=== PATIENT | female | born 1960 | race Two or more races ===

== ENCOUNTER 2022-06-23 15:51 | Inpatient (IN) | payer MEDICAID, OTHER ==
[~2022-06-23] VITALS: Ht 160 cm; Wt 52.0 kg
[2022-06-23] MEDS ORDERED: NALOXONE HCL 1MG/ML 2ML SYRINGE IV ONE ×2 (16:15→17:30)
[2022-06-23 16:35] LABS: Basophils # (auto) 0 10 ^3/uL (0-0.2); Basophils % (auto) 0.8 % (0.0-2.0); Eosinophils # (auto) 0 10 ^3/uL (0-0.8); Eosinophils % (auto) 0.1 % (0.0-7.0); Hematocrit 36.3 % (36.0-46.0); Hemoglobin 11.8 g/dL (12.2-16.2); Lymphocytes # (auto) 1.3 10 ^3/uL (0.4-5.4); Mean Corpuscular Hemoglobin 29.7 pg (28.0-32.0); Mean Corpuscular Hgb Conc. 32.6 g/dL (32.0-36.0); Mean Corpuscular Volume 90.9 fL (80.0-100.0); Monocytes # (auto) 0.7 10 ^3/uL (0-1.3); Monocytes % (auto) 12.8 % (0.0-12.0); Neutrophils # (auto) 3.4 10 ^3/uL (1.6-8.6); Neutrophils % (auto) 62.3 % (37.0-80.0); Nucleated Red Blood Cells % 0.1 %; Red Blood Cells 3.99 10^6/uL (4.0-5.20); Red Cell Distribution Width 14.5 % (11.8-14.3); White Blood Cell 5.4 10^3/uL (4.4-10.8)
[2022-06-23 17:08] LABS: Albumin 3.3 g/dL (3.4-5.0); Calcium 9.4 mg/dL (8.5-10.1); Potassium 3.9 mmol/L (3.5-5.1)
[2022-06-23 17:11] LABS: Bilirubin, Total 0.5 mg/dL (0.2-1.0); Total Protein 6.5 g/dL (6.4-8.2)
[2022-06-23] MEDS ORDERED: NALOXONE HCL 1MG/ML 2ML SYRINGE ONE (17:20)
[2022-06-23 17:33] LABS: Urine Bacteria FEW /hpf (None Seen); Urine Blood Negative /uL (Negative); Urine Hyaline Cast MOD /lpf (0 - 2); Urine Mucus FEW (None Seen); Urine Specific Gravity 1.017 (1.001-1.035); Urine WBC 14 /hpf (0 - 5)
[2022-06-23 17:40] LABS: Alcohol, Urine < 3.0 mg/dL (0-10); Amphetamine Screen, Urine NEGATIVE (NEGATIVE); Barbiturate Scree,Urine NEGATIVE (NEGATIVE); Benzodiazephine Screen, Urine NEGATIVE (NEGATIVE); Cannabinoid Screen, Urine NEGATIVE (NEGATIVE); Cocaine Screen, Urine NEGATIVE (NEGATIVE); Opiate Scree,Urine NEGATIVE (NEGATIVE); Phencyclidine Screen, Urine NEGATIVE (NEGATIVE)
[2022-06-23] MEDS ORDERED: MORPHINE SULFATE INJ 2 MG/ml SYRG IV PRN (21:45)
[2022-06-23] MEDS ORDERED: DEXTROSE (50%) 50ML SYRG IV PRN (21:45)
[2022-06-23] MEDS ORDERED: cefTRIAXone 1GM/50ML D5W 50 ML IV ONE (21:45)
[2022-06-23] MEDS ORDERED: NITROGLYCERIN 0.4 MG SL TAB SL PRN (21:45)
[2022-06-23] MEDS ORDERED: ONDANSETRON HCL 4 MG/2 ML VIAL IV PRN (21:45)
[2022-06-23] MEDS: InsuLIN REG 1unit/0.01ml Soln (100units/ml) SC SCH (22:00)
[2022-06-23] MEDS: ACCU-CHEK COMFORT CURVE STRIP VI SCH (22:00)
[2022-06-23] MEDS: ATORVASTATIN 20 MG TAB PO SCH (23:23)
[2022-06-23] MEDS: GABAPENTIN 100 MG CAP PO SCH (23:24)
[2022-06-24] MEDS: GABAPENTIN 100 MG CAP PO SCH ×3 (06:00→21:58)
[2022-06-24] MEDS: ACCU-CHEK COMFORT CURVE STRIP VI SCH ×4 (06:45→21:58)
[2022-06-24] MEDS: InsuLIN REG 1unit/0.01ml Soln (100units/ml) SC SCH ×4 (06:51→21:57)
[2022-06-24 07:15] LABS: Basophils # (auto) 0 10 ^3/uL (0-0.2); Basophils % (auto) 0.8 % (0.0-2.0); Eosinophils # (auto) 0 10 ^3/uL (0-0.8); Eosinophils % (auto) 0.7 % (0.0-7.0); Hematocrit 38.6 % (36.0-46.0); Hemoglobin 12.3 g/dL (12.2-16.2); Lymphocytes % (auto) 19.1 % (10.0-50.0); Mean Corpuscular Hemoglobin 29.4 pg (28.0-32.0); Mean Corpuscular Volume 92.1 fL (80.0-100.0); Monocytes # (auto) 0.5 10 ^3/uL (0-1.3); Monocytes % (auto) 9.6 % (0.0-12.0); Neutrophils # (auto) 3.7 10 ^3/uL (1.6-8.6); Neutrophils % (auto) 69.8 % (37.0-80.0); Nucleated Red Blood Cells % 0.1 %; Red Blood Cells 4.19 10^6/uL (4.0-5.20); Red Cell Distribution Width 14.9 % (11.8-14.3); White Blood Cell 5.3 10^3/uL (4.4-10.8)
[2022-06-24] MEDS: LEVOTHYROXINE SODIUM 100 MCG TAB PO SCH (07:18)
[2022-06-24 07:32] LABS: BUN/Creatinine Ratio 24.3; Calcium 9.7 mg/dL (8.5-10.1)
[2022-06-24 08:14] LABS: Potassium 4.7 mmol/L (3.5-5.1)
[2022-06-24] MEDS: PANTOPRAZOLE 40 MG TAB PO SCH (09:32)
[2022-06-24] MEDS: cefTRIAXone 1GM/50ML D5W 50 ML IV SCH (09:32)
[2022-06-24 18:30] VITALS: BP 130/79
[2022-06-24 18:35] VITALS: BP 130/79
[2022-06-24 19:31] LABS: Free T4 (Free Thyroxine) 1.02 ng/dL (0.89-1.76)
[2022-06-24 19:32] LABS: Folate (Folic Acid) 13.81 ng/mL (5.38-24)
[2022-06-24 21:35] VITALS: BP 116/63
[2022-06-24] MEDS: ATORVASTATIN 20 MG TAB PO SCH (21:58)
[2022-06-25 05:18] VITALS: BP 102/67
[2022-06-25] MEDS: InsuLIN REG 1unit/0.01ml Soln (100units/ml) SC SCH ×4 (06:19→21:38)
[2022-06-25] MEDS: LEVOTHYROXINE SODIUM 100 MCG TAB PO SCH (06:26)
[2022-06-25] MEDS: ACCU-CHEK COMFORT CURVE STRIP VI SCH ×4 (06:27→21:46)
[2022-06-25] MEDS: GABAPENTIN 100 MG CAP PO SCH ×2 (06:27→13:27)
[2022-06-25 06:36] LABS: BUN/Creatinine Ratio 21.8; Calcium 9.5 mg/dL (8.5-10.1); Potassium 4.1 mmol/L (3.5-5.1)
[2022-06-25 06:44] LABS: Basophils # (auto) 0 10 ^3/uL (0-0.2); Eosinophils # (auto) 0.1 10 ^3/uL (0-0.8); Eosinophils % (auto) 2.5 % (0.0-7.0); Hematocrit 37.8 % (36.0-46.0); Hemoglobin 12.3 g/dL (12.2-16.2); Lymphocytes # (auto) 1.3 10 ^3/uL (0.4-5.4); Lymphocytes % (auto) 36.6 % (10.0-50.0); Mean Corpuscular Hemoglobin 29.7 pg (28.0-32.0); Mean Corpuscular Hgb Conc. 32.5 g/dL (32.0-36.0); Mean Corpuscular Volume 91.4 fL (80.0-100.0); Monocytes # (auto) 0.5 10 ^3/uL (0-1.3); Monocytes % (auto) 14.9 % (0.0-12.0); Neutrophils # (auto) 1.6 10 ^3/uL (1.6-8.6); Red Blood Cells 4.14 10^6/uL (4.0-5.20); Red Cell Distribution Width 14.6 % (11.8-14.3); White Blood Cell 3.5 10^3/uL (4.4-10.8)
[2022-06-25 07:23] LABS: Urine Bacteria FEW /hpf (None Seen); Urine Blood 2+ /uL (Negative); Urine Mucus FEW (None Seen); Urine Specific Gravity 1.018 (1.001-1.035); Urine WBC 20 /hpf (0 - 5)
[2022-06-25 08:06] LABS: RPR Non Reactive (Non Reactive)
[2022-06-25 09:00] VITALS: BP 124/77
[2022-06-25] MEDS: ENOXAPARIN SOD 40 MG/0.4 ML SYRINGE SC SCH (09:10)
[2022-06-25] MEDS: PANTOPRAZOLE 40 MG TAB PO SCH (09:10)
[2022-06-25] MEDS: cefTRIAXone 1GM/50ML D5W 50 ML IV SCH (09:10)
[2022-06-25 16:58] VITALS: BP 129/83
[2022-06-25] MEDS: LIDOCAINE 5% TOPICAL PATCH TOP SCH (17:50)
[2022-06-25 20:44] VITALS: BP 113/69
[2022-06-25] MEDS: HYDROcodone-ACET 7.5/325MG TAB PO PRN (20:44)
[2022-06-25] MEDS: ATORVASTATIN 20 MG TAB PO SCH (21:46)
[2022-06-25] MEDS: GABAPENTIN 300 MG CAP PO SCH (21:46)
[2022-06-26 04:34] VITALS: BP 123/80
[2022-06-26] MEDS: GABAPENTIN 300 MG CAP PO SCH ×3 (06:22→21:09)
[2022-06-26] MEDS: InsuLIN REG 1unit/0.01ml Soln (100units/ml) SC SCH ×4 (06:27→22:18)
[2022-06-26] MEDS: ACCU-CHEK COMFORT CURVE STRIP VI SCH (06:33)
[2022-06-26] MEDS: LEVOTHYROXINE SODIUM 100 MCG TAB PO SCH (06:33)
[2022-06-26] MEDS: HYDROcodone-ACET 7.5/325MG TAB PO PRN (06:34)
[2022-06-26] MEDS: INSULIN LANTUS (GLARGINE) 1 /0.01ml (100units/ml) SC SCH (07:49)
[2022-06-26] MEDS: cefTRIAXone 1GM/50ML D5W 50 ML IV SCH (09:38)
[2022-06-26] MEDS: ENOXAPARIN SOD 40 MG/0.4 ML SYRINGE SC SCH (09:39)
[2022-06-26] MEDS: PANTOPRAZOLE 40 MG TAB PO SCH (09:39)
[2022-06-26 09:52] VITALS: BP 117/75
[2022-06-26 13:00] VITALS: BP 129/75
[2022-06-26 16:44] VITALS: BP 117/77
[2022-06-26] MEDS: LIDOCAINE 5% TOPICAL PATCH TOP SCH (18:04)
[2022-06-26] MEDS: ATORVASTATIN 20 MG TAB PO SCH (21:10)
[2022-06-26 22:00] VITALS: BP 134/76
[2022-06-27 05:00] VITALS: BP 103/73
[2022-06-27] MEDS: GABAPENTIN 300 MG CAP PO SCH ×3 (05:23→21:10)
[2022-06-27] MEDS: LEVOTHYROXINE SODIUM 100 MCG TAB PO SCH (06:57)
[2022-06-27] MEDS: InsuLIN REG 1unit/0.01ml Soln (100units/ml) SC SCH ×4 (06:58→21:15)
[2022-06-27] MEDS: INSULIN LANTUS (GLARGINE) 1 /0.01ml (100units/ml) SC SCH (06:59)
[2022-06-27 09:00] VITALS: BP 115/76
[2022-06-27] MEDS: cefTRIAXone 1GM/50ML D5W 50 ML IV SCH (09:31)
[2022-06-27] MEDS: HYDROcodone-ACET 10/325MG TAB PO PRN ×2 (09:32→19:26)
[2022-06-27] MEDS: PANTOPRAZOLE 40 MG TAB PO SCH (09:32)
[2022-06-27] MEDS: ENOXAPARIN SOD 40 MG/0.4 ML SYRINGE SC SCH (09:32)
[2022-06-27 13:00] VITALS: BP 110/68
[2022-06-27 17:00] VITALS: BP 115/74
[2022-06-27] MEDS: LIDOCAINE 5% TOPICAL PATCH TOP SCH (18:08)
[2022-06-27] MEDS: ATORVASTATIN 20 MG TAB PO SCH (21:10)
[2022-06-27 21:28] VITALS: BP 114/74
[2022-06-27] MEDS ORDERED: INSULIN LANTUS (GLARGINE) 1 /0.01ml (100units/ml) SC SCH (22:00)
== END 2022-06-27 22:20 | DRG 420 ==
LOC: EDBD 15:51 → ER 15:51 → TELE 21:41 → TELE-WESTW 06-24 18:04 → WEST WING 06-26 15:05
PROVIDERS: ADMIT Nurse Practitioner; ATTEND Hospitalist
DX: E11.00 Type 2 diabetes mellitus with hyperosmolarity without nonketotic hyperglycemic-hyperosmolar coma (NKHHC) (principal); G92.8 Other toxic encephalopathy; N17.9 Acute kidney failure, unspecified; T40.2X1A Poisoning by other opioids, accidental (unintentional), initial encounter; N39.0 Urinary tract infection, site not specified; Z20.822 Contact with and (suspected) exposure to COVID-19; I10 Essential (primary) hypertension; Y92.89 Other specified places as the place of occurrence of the external cause
CPT/HCPCS: 36415; 70450; 71045; 80048; 80053; 80307; 80320; 81001; 82607; 82746; 82962; 84439; 84443; 84484; 85025; 86592; 87040; 87086; 87426; 93005; 96365; 96366; 96375; 96376; 97116; 97163; 97530; G0378; J0696; J1815